=== PATIENT | male | born 1955 | race Caucasian/White ===

== ENCOUNTER 2017-03-28 05:30 | Day surgery (SDC) | payer BC ==
[2017-03-27 12:58] VITALS: BMI 33.9
--- NOTE | 2017-03-28 05:57 | HP ---
HISTORY OF PRESENT ILLNESS: Mr. Stuart is known to us for previous lumbar and cervical spine procedure s. He returns today with significant problems that he identifies up and down his spine and hopes to have some of his issues addressed. This is after having an MRI performed of his entire spine, the renee mbar spine which he feels the most significant of his pain reveals rather severe, central canal steno sis at L2-L3 as well as a grade 1 spondylolisthesis at L5-S1 with associated severe foraminal stenosi s bilaterally. He has significant back pain and neurogenic claudication symptoms as his major lumbar complaint in both these levels would fit well with the symptoms. PAST MEDICAL HISTORY: Significant for hypertension, hyperlipidemia, kidney stones, previous transver se myelitis, and rheumatoid arthritis. CURRENT MEDICATIONS: Include alprazolam, amlodipine, atorvastatin, diclofenac, fenofibrate, Lyrica, pantoprazole, telmisartan, and hydrochlorothiazide. PAST SURGICAL HISTORY: Posterior cervical decompression, lumbar laminectomy and appendectomy. PHYSICAL EXAMINATION: The patient is alert and oriented x3. Gait is mildly antalgic. Upper and low er extremity motor exam is essentially normal. No sensory disturbance is determined on examina tion. ASSESSMENT: Lumbar spondylolisthesis with neurogenic claudication and back pain. PLAN: Dr. Schwarz met with the patient, reviewed imaging and ultimately advocated for a reoperation of L2-L3 decompression and L5-S1 fusion. He explained to the patient the risks, benefits, and alternat babar to the procedure. The patient expressed understanding and would like to move forward with surge ry as discussed. I do believe the patient is mentally competent and capable of making medical decisi ons for himself and we will move forward with surgery as planned. Walt Cotto PA-C, dictating for Toi Schwarz M.D.
[2017-03-28] MEDS ORDERED: Bupivacaine/Epinephrine 0.25% 30 ML VIAL ONE (06:47)
[2017-03-28] MEDS ORDERED: Thrombin 5000 UNITS/5 ML VIAL ONE (06:47)
[2017-03-28] MEDS ORDERED: Midazolam HCl 2 mg/2 ml Vial ONE (06:52)
[2017-03-28] MEDS ORDERED: CEFAZOLIN/Water 2 GM/20 ML SYRINGE ONE ×2 (06:52→16:28)
[2017-03-28 07:15] LABS: Anion Gap 10 mmol/L (10-20); BUN (Urea Nitrogen) 21 mg/dL (8.4-25.7); Calc. Creatinine Clearance 146 mL/min (70-130); Calcium 9.7 mg/dL (7.8-10.44); Carbon Dioxide 28 mmol/L (23-31); Chloride 105 mmol/L (98-107); Estimated GFR-MDRD Greater than 90; Glucose 122 mg/dL (80-115); Potassium 4.4 mmol/L (3.5-5.1); Sodium 139 mmol/L (136-145)
[2017-03-28] MEDS ORDERED: Fentanyl 100 MCG/2 ML VIAL ONE ×2 (10:38→14:18)
[2017-03-28] MEDS ORDERED: Phenylephrine 10 MG/NS 250 ML 250 ML ONE (11:51)
[2017-03-28] MEDS ORDERED: HYDROmorphone 0.5 MG/0.5 ML SYRINGE ONE ×4 (14:29→15:04)
[2017-03-28] MEDS ORDERED: ePHEDrine/0.9% NaCl/PF SYRINGE 50 mg/10 ml ONE (16:59)
[2017-03-28] MEDS ORDERED: PROPOFOL 200 MG/20 ML VIAL ONE (16:59)
[2017-03-28] MEDS ORDERED: PHENYLEPHRINE-NS 100 MCG/ML 10 ML SYRINGE ONE (16:59)
[2017-03-28] MEDS ORDERED: Dexamethasone 20 MG/5 ML VIAL ONE (16:59)
[2017-03-28] MEDS ORDERED: Ketorolac Tromethamine 30 MG/ML VIAL ONE (16:59)
[2017-03-28] MEDS ORDERED: Ondansetron HCl/PF 4 MG/2 ML Vial ONE (16:59)
[2017-03-28] MEDS ORDERED: Lidocaine 1% PF 5 ML VIAL ONE (16:59)
[2017-03-28] MEDS ORDERED: Glycopyrrolate 0.2 MG/ML 5 ML SYRINGE ONE (16:59)
[2017-03-28] MEDS ORDERED: HYDROcodone/Acetaminophen 5/325 mg Tablet ONE (17:03)
--- NOTE | 2017-03-31 12:19 | EKG ---
Test Reason : PREOP Blood Pressure : / mmHG Vent. Rate : 072 BPM Atrial Rate : 072 BPM P-R Int : 186 ms QRS Dur : 080 ms QT Int : 366 ms P-R-T Axes : 057 014 020 degrees QTc Int : 400 ms Normal sinus rhythm Possible Inferior infarct (cited on or before 18-OCT-2013) Cannot rule out Anterior infarct (cited on or before 30-DEC-2013) Abnormal ECG Confirmed by ADRIAN GRANADOS ([id number]) on 03/31/2017 12:18:57 PM Referred By: MARIN Confirmed By:ADRIAN GRANADOS
--- NOTE | 2017-04-01 13:27 | OP ---
DATE OF PROCEDURE: 03/28/2017 SURGEON: Toi Schwarz M.D. DOG FOOD DOUGH MIXER: Walt Cotto PA-C. INDICATION: Pain. PREOPERATIVE DIAGNOSES: Lumbar spondylosis, lumbar stenosis. POSTOPERATIVE DIAGNOSES: Lumbar spondylosis, lumbar stenosis. PROCEDURES PERFORMED: Reoperation L2-3 lumbar decompression, reoperation L5-S1 non-instrumented fusi on with placement of allograft, placement of autograft and bilateral facetectomies. ANESTHESIA: General. TECHNIQUE: The patient was brought into the operating room and placed under general anesthesia. He was flipped from a supine to a prone position on the operating room table. Two linear incisions were planned one at L2-3 and one at L5-S1, both of which encompassed prior incisions. At L2-3, incision was created. The soft tissues were swept away from midline. A self-retaining retractor was placed. After confirming the appropriate levels seen on fluoroscopy, a high-speed cutting drill bits rongeur s and Kerrisons were then used to perform a more extensive L2-L3 lumbar decompression, which encompas sed the medial aspect of the facet joints. After decompressing this segment, the wound was irrigated . Hemostasis was maintained throughout. The wound was closed in anatomic layers. We then redirecte d our attention at L5-S1 where an incision was created. The soft tissues were swept away from midlin e. Self-retaining retractors were placed in the wound for optimal exposure. We spent an extensive a mount of time dissecting through scar and therefore surgical modifier will be applied. After further decompressing the L5-S1 segment, we decided not to move forward with instrumented fusion, but rather perform an onlay fusion. The facet joints and the surrounding bone were decorticated. Allograft an d autograft material was placed within the lateral confines of the instrumentation construct. The wo und was then irrigated. Hemostasis was maintained throughout. The wound was then closed in anatomic layers and a pressure dressing was applied. There were no known procedural complications.
== END 2017-03-28 18:14 | disposition home or self-care (01) ==
LOC: SDC 05:30
PROVIDERS: ATTEND Neurological Surgery
DX: M47.816 Spondylosis without myelopathy or radiculopathy, lumbar region (principal); M48.061 Spinal stenosis, lumbar region without neurogenic claudication; I10 Essential (primary) hypertension; E78.5 Hyperlipidemia, unspecified; M06.9 Rheumatoid arthritis, unspecified; Z79.899 Other long term (current) drug therapy; Z98.1 Arthrodesis status; Z96.653 Presence of artificial knee joint, bilateral; Z96.1 Presence of intraocular lens; Z90.49 Acquired absence of other specified parts of digestive tract; Z98.890 Other specified postprocedural states; Z87.442 Personal history of urinary calculi
CPT/HCPCS: 51798; 76001; 80048; 93005; 93010; 96374; J1100; J1170; J1885; J2001; J2250; J2405; J2704; J3010

== ENCOUNTER 2017-09-10 05:57 | Day surgery (SDC) | payer BC ==
[2017-09-09 15:28] VITALS: BMI 33.0
--- NOTE | 2017-09-10 00:35 | HP ---
HISTORY OF PRESENT ILLNESS: Mr. Stuart is a 62-year-old man, who is known to us for several previous l umbar and cervical surgeries, who returns now with continuing chronic C4 radiculopathies bilaterally. He has had a posterior cervical decompression at multiple levels including this and looks to have b ased on the CT from [facility], a low-profile hardware placed anteriorly at C3-C4 with nonunion at th is level. It could be entirely possible that this is where it is coming from and he hopes to pursue surgery to correct this. PAST MEDICAL HISTORY: Significant for hypertension, hyperlipidemia, kidney stones, transverse myelit is, rheumatoid arthritis. MEDICATIONS: Alprazolam, amlodipine, atorvastatin, diclofenac, fenofibrate, Lyrica, pantoprazole, te lmisartan, and hydrochlorothiazide. PAST SURGICAL HISTORY: Posterior cervical decompression, anterior cervical diskectomy and fusion, renee mbar laminectomy and fusion, appendectomy. PHYSICAL EXAMINATION: The patient is alert and oriented x3. Upper extremity motor exam is normal. He has limited range of motion of the cervical spine. ASSESSMENT: Cervical radiculopathy and nonunion. PLAN: Dr. Schwarz met with the patient, reviewed imaging, and advocated for a C3-C4 cervical fusion re vision with hardware removal and placement of interbody graft. He explained to the patient the risks , benefits, and alternatives of the procedure. The patient expressed understanding and would like to move forward with surgery as discussed. I do believe the patient is mentally competent and capable of making medical decisions for himself, and we will move forward with surgery as planned.
[2017-09-10] MEDS ORDERED: Thrombin 5000 UNITS/5 ML VIAL ONE (06:17)
[2017-09-10] MEDS ORDERED: Lidocaine 1% w/Epinephrine 1:100K 30 ML VIAL ONE (06:38)
[2017-09-10] MEDS ORDERED: Pantoprazole 40 MG VIAL ONE (06:46)
[2017-09-10 06:48] LABS: Anion Gap 10 mmol/L (10-20); BUN (Urea Nitrogen) 20 mg/dL (8.4-25.7); Calc. Creatinine Clearance 143 mL/min (70-130); Calcium 9.8 mg/dL (7.8-10.44); Carbon Dioxide 26 mmol/L (23-31); Chloride 107 mmol/L (98-107); Estimated GFR-MDRD Greater than 90; Glucose 101 mg/dL (80-115); Potassium 4.4 mmol/L (3.5-5.1); Sodium 139 mmol/L (136-145)
[2017-09-10] MEDS ORDERED: CEFAZOLIN/Water 2 GM/20 ML SYRINGE ONE ×2 (06:49→11:05)
[2017-09-10] MEDS ORDERED: Midazolam HCl 2 mg/2 ml Vial ONE (06:49)
[2017-09-10] MEDS ORDERED: Fentanyl 100 MCG/2 ML VIAL ONE ×2 (07:00→09:49)
[2017-09-10] MEDS ORDERED: PHENYLEPHRINE-NS 100 MCG/ML 10 ML SYRINGE ONE ×2 (07:54→15:05)
[2017-09-10] MEDS ORDERED: PROPOFOL 20 ML ONE (08:00)
[2017-09-10] MEDS ORDERED: Promethazine HCl 25 MG/ML VIAL IM PRN (08:39)
[2017-09-10] MEDS ORDERED: Meperidine HCl/PF 25 MG/ML VIAL SLOW IVP PRN (08:39)
[2017-09-10] MEDS ORDERED: Promethazine HCl 25 MG/ML VIAL SLOW IVP PRN (08:39)
[2017-09-10] MEDS ORDERED: Morphine Sulfate 2 MG/ML SYRINGE SLOW IVP PRN (08:39)
[2017-09-10] MEDS ORDERED: HYDROmorphone 2 MG/ML VIAL SLOW IVP PRN (08:39)
[2017-09-10] MEDS ORDERED: Ondansetron HCl/PF 4 MG/2 ML Vial IVP PRN (08:39)
[2017-09-10] MEDS ORDERED: Morphine 4 MG/ML VIAL ONE (10:00)
[2017-09-10] MEDS ORDERED: Ketorolac Tromethamine 30 MG/ML VIAL ONE (10:59)
[2017-09-10] MEDS ORDERED: HYDROcodone/Acetaminophen 10/325 mg Tablet ONE (11:04)
--- NOTE | 2017-09-10 11:56 | OP ---
DATE OF PROCEDURE: 09/10/2017 SURGEON: Toi Schwarz M.D. DEMOGRAPHER SURGEON: Allen Cuevas M.D. ANESTHESIA: General. INDICATION: Pain. DIAGNOSIS: Failed fusion. PROCEDURE: Exploration of fusion, removal of anterior instrumentation, and anterior cervical diskect christine and fusion C3-4. TECHNIQUE: The patient was brought into the operating room and placed under general anesthesia. He was placed on table in a supine position. A transverse incision was planned over the lateral aspect of the neck in line with the previous incision. After prepping and draping and after an appropriate operative pause, the incision was created. Dr. Bruce Cuevas was responsible for the cervical exposur e down to the prevertebral space. After gaining access to the prevertebral space, the prior fusion c onstruct at 3-4 was identified. The ectopic bone was removed, 3 screws as well as a 0 profile interb justo device was also removed. The disk space was then drilled down and decompressed using Kerrisons. An interbody device was then placed within the disk space, which was packed with allograft and autog raft. The wound was irrigated. Hemostasis was maintained throughout. The wound was then closed in anatomic layers and a pressure dressing was applied. There were no known procedural complications.
[2017-09-10] MEDS ORDERED: Lidocaine 1% PF 5 ML VIAL ONE (15:05)
[2017-09-10] MEDS ORDERED: Ondansetron HCl/PF 4 MG/2 ML Vial ONE (15:05)
[2017-09-10] MEDS ORDERED: PROPOFOL 200 MG/20 ML VIAL ONE (15:05)
[2017-09-10] MEDS ORDERED: ePHEDrine/0.9% NaCl/PF SYRINGE 50 mg/10 ml ONE (15:05)
[2017-09-10] MEDS ORDERED: Succinylcholine Chloride 20 MG/ML 10 ml SYRINGE FS ONE (15:05)
[2017-09-10] MEDS ORDERED: Glycopyrrolate 0.2 MG/ML 5 ML SYRINGE ONE (15:05)
[2017-09-10] MEDS ORDERED: Dexamethasone 20 MG/5 ML VIAL ONE (15:05)
--- NOTE | 2017-09-11 12:18 | OP ---
DATE OF PROCEDURE: 09/10/2017 POSTOPERATIVE DIAGNOSES: 1. Cervical myelopathy. 2. Need for anterior approach for anterior cervical disk fusion surgery. SURGEON: Dr. Allen Cuevas CRUISE GUIDE SURGEON: Dr. Marquis Schwarz ESTIMATED BLOOD LOSS: 10 mL. PROCEDURE: 1. Anterior cervical disk fusion surgery. 2. Intraoperative laryngeal nerve monitoring. COMPLICATIONS: None. ANESTHESIA: GETA with laryngeal nerve monitoring also. PROCEDURE: The patient was taken to the operating room and placed supine on the table. General endo tracheal anesthesia was obtained by the Anesthesia staff. Using the direct laryngoscope the laryngea l monitor probes were noted to be within the true vocal cords. The tubes were at this point secured to the midline of the upper lip. Following this, the patient was prepped and draped in standard asuncion gical fashion. Following this, 4 mL of 1% lidocaine 1:10,000 epinephrine was injected into previous incision. The patient was prepped in standard surgical fashion. A 10 blade was then used to make an incision in the skin and a previous horizontal neck incision marked, dissection was carried through the subcuticular layer and the platysmal layer. The sternocleidomastoid muscle was identified. Stay ing just anterior to its fascia dissection was carried medially. The laryngeal structures along with the right recurrent laryngeal nerve was retracted medially and the great vessels were retracted late rally. Adequate exposure of the prevertebral space was obtained and the case was then turned over to Dr. Marquis Schwarz.
== END 2017-09-10 12:01 | disposition home or self-care (01) ==
LOC: SDC 05:57
PROVIDERS: ATTEND Neurological Surgery
PROC: 0RT30ZZ Resection of Cervical Vertebral Disc, Open Approach (ICD-10-PCS; principal; 2017-09-10)
PROC: 0RG10A0 Fusion of Cervical Vertebral Joint with Interbody Fusion Device, Anterior Approach, Anterior Column, Open Approach (ICD-10-PCS; principal; 2017-09-10)
DX: M96.0 Pseudarthrosis after fusion or arthrodesis (principal); M50.00 Cervical disc disorder with myelopathy, unspecified cervical region; M54.12 Radiculopathy, cervical region; I10 Essential (primary) hypertension; E78.5 Hyperlipidemia, unspecified; Z79.1 Long term (current) use of non-steroidal anti-inflammatories (NSAID); Z79.899 Other long term (current) drug therapy; Z98.1 Arthrodesis status
CPT/HCPCS: 36415; 76001; 80048; 93005; 93010; 96374; C1776; C9113; J0131; J1100; J1885; J2001; J2250; J2270; J2405; J2704; J3010

== ENCOUNTER 2018-09-15 11:20 | Outpatient (CLI) | payer BC ==
--- NOTE | 2018-09-15 11:44 | RAD ---
XR Hip Rt 2-3 View History: M 25.559 Comparison: None. Findings: Obturator ring is intact. No fracture or malalignment. Mild degenerative disease in the rig ht SI joint and pubic symphysis. Small tacks are noted along the anterior lower pelvis as well as surgical clips along the groin. Impression: No acute fracture or malalignment.
== END 2018-09-15 11:21 | disposition home or self-care (01) ==
LOC: TBSIIMAG 11:20
PROVIDERS: ATTEND Neurological Surgery
DX: M25.551 Pain in right hip (principal)

== ENCOUNTER 2019-03-24 07:45 | Day surgery (SDC) | payer BC ==
[2019-03-23 10:46] VITALS: BMI 33.0
--- NOTE | 2019-03-23 15:06 | HP ---
HISTORY OF PRESENT ILLNESS: Mr. Stuart is known to us for prior evaluations and surgeries for both cervical and lumbar spinal stenosis, who returns now with severe symptoms of neurogenic claudication. He had a new MRI on disk from [facility] that reveals severe L2-3 central canal stenosis secondary to scar tissue, hypertrophic facet joints and some disk material as well. This is very likely his symptoms. He does have rather significant degenerative disease scattered throughout the rest of his visualized lumbar and thoracic spine. However, none of this impose the same degree of spinal stenosis at the level at L2-3. He has treated these with medications, but given his past history, he would not like to pursue any other interventions and prefers to discuss surgery instead. PAST MEDICAL HISTORY: Significant for chronic pain syndrome, gastroesophageal reflux disease, hypertension, hyperlipidemia. CURRENT MEDICATIONS: Carvedilol, Celebrex, atorvastatin, telmisartan, hydrochlorothiazide, amlodipine, Lyrica, pantoprazole. PAST SURGICAL HISTORY: ACDF, lumbar decompression, cervical decompression, knee replacement. PHYSICAL EXAMINATION: GENERAL: The patient is alert and oriented x3. NEUROLOGICAL: Gait is mildly antalgic. Lower extremity motor exam is normal. ASSESSMENT: Lumbar stenosis and neurogenic claudication. PLAN: Dr. Schwarz met with the patient, reviewed imaging, advocated for L2-L3 decompression. He explained to the patient the risks, benefits, and alternatives to the procedure. The patient expressed understanding, elected to move forward with surgery as discussed. I do believe the patient is mentally competent and capable of making medical decisions for himself. We will move forward with surgery as planned. Job ID: [id number]
[2019-03-24 11:14] LABS: Anion Gap 13 mmol/L (10-20); BUN (Urea Nitrogen) 20 mg/dL (8.4-25.7); Calc. Creatinine Clearance 150 mL/min (70-130); Calcium 9.5 mg/dL (7.8-10.44); Carbon Dioxide 24 mmol/L (23-31); Chloride 104 mmol/L (98-107); Estimated GFR-MDRD Greater than 90; Glucose 104 mg/dL (80-115); Sodium 137 mmol/L (136-145)
[2019-03-24] MEDS ORDERED: Fentanyl 250 MCG/5 ML VIAL ONE (11:22)
[2019-03-24] MEDS ORDERED: Bupivacaine PF 0.5% 30 ML VIAL ONE (11:26)
[2019-03-24] MEDS ORDERED: Thrombin 5000 UNITS/5 ML VIAL ONE (11:26)
[2019-03-24] MEDS ORDERED: EPINEPHrine 1 MG/ML AMP ONE (11:26)
[2019-03-24] MEDS ORDERED: ePHEDrine/0.9% NaCl/PF SYRINGE 50 mg/10 ml ONE (12:09)
[2019-03-24] MEDS ORDERED: PROPOFOL 200 MG/20 ML VIAL ONE (12:09)
[2019-03-24] MEDS ORDERED: Ondansetron PF 4 MG/2 ML Vial ONE (12:09)
[2019-03-24] MEDS ORDERED: Lidocaine 1% PF 5 ML VIAL ONE (12:09)
[2019-03-24] MEDS ORDERED: PHENYLEPHRINE-NS 100 MCG/ML 10 ML SYRINGE ONE (12:09)
[2019-03-24] MEDS ORDERED: Rocuronium Bromide 10 MG/ML (10ML VIAL) ONE (12:09)
[2019-03-24] MEDS ORDERED: Calcium Chloride 1 GM/10 ML Abboject SYRINGE ONE (12:09)
[2019-03-24] MEDS ORDERED: Glycopyrrolate 0.2 MG/ML 5 ML SYRINGE ONE (12:09)
[2019-03-24] MEDS ORDERED: Albumin 5% 500 ML ONE (12:18)
[2019-03-24] MEDS ORDERED: Phenylephrine HCL 10 MG/ML VIAL ONE (12:38)
[2019-03-24] MEDS ORDERED: Fentanyl 100 MCG/2 ML VIAL ONE ×2 (14:09→14:39)
[2019-03-24] MEDS ORDERED: Morphine 2 MG/ML SYRINGE ONE ×2 (15:08→15:42)
[2019-03-24] MEDS ORDERED: Tamsulosin HCl 0.4 MG CAP ONE (16:13)
--- NOTE | 2019-03-24 16:59 | OP ---
DATE OF PROCEDURE: 03/24/2019 ACADEMY EDUCATION DIRECTOR: Walt Cotto PA-C INDICATION: Pain. DIAGNOSIS: Lumbar stenosis. PROCEDURE PERFORMED: Re-operation of L2-L3 decompression. ANESTHESIA: General. DESCRIPTION OF PROCEDURE: The patient was brought into the operating room and placed under general anesthesia. He was flipped from the supine to prone position on the operating room table. A linear incision was planned to the L2-L3 segment, which encompassed in part the previous incision site. After prepping and draping and after an appropriate operative pause, the incision was created. The soft tissues were swept away from midline. Self-retaining retractors were placed in the wound for optimal exposure. We spent an extensive amount of time dissecting through scar tissue as the patient has had multiple operations. I identified an area of laminectomy defect at L2-L3. There was a loose facet joint on the right at L2-L3. Most of this facet joint was removed, which decompressed the lateral recess at L2-L3 on the right. Additional lamina was removed in order to further decompress the area. There were small elements of bone, which were densely adherent to the dura which were left in place, but not compressive. After completing the decompression, the wound was irrigated. Hemostasis was maintained throughout. The wound was then closed in anatomic layers, and a pressure dressing was applied. There were no known procedural complications. Job ID: [id number]
== END 2019-03-24 16:45 | disposition home or self-care (01) ==
LOC: SDC 07:45
PROVIDERS: ATTEND Neurological Surgery
PROC: 01NB0ZZ Release Lumbar Nerve, Open Approach (ICD-10-PCS; principal; 2019-03-24)
DX: M48.062 Spinal stenosis, lumbar region with neurogenic claudication (principal); G89.4 Chronic pain syndrome; K21.9 Gastro-esophageal reflux disease without esophagitis; I10 Essential (primary) hypertension; E78.5 Hyperlipidemia, unspecified; I25.2 Old myocardial infarction; Z79.82 Long term (current) use of aspirin; Z79.899 Other long term (current) drug therapy; Z98.1 Arthrodesis status
CPT/HCPCS: 36415; 76000; 80048; 93005; 93010; J0171; J0690; J2001; J2270; J2370; J2405; J2704; J3010; P9045; S0020